=== PATIENT | female | born 1965 | race Two or more races ===

== ENCOUNTER 2021-01-27 04:24 | Day surgery (SDC) | payer OTHER ==
[2021-01-26 10:30] VITALS: BMI 25.8
[2021-01-27] MEDS ORDERED: PHENAZOPYRIDINE HCL 100 MG TABLET (FP) PO ONE (07:00)
[2021-01-27] MEDS ORDERED: CEFAZOLIN 2 GM/D5W 2 GM/50 ML ML IVPB ONE (07:00)
[2021-01-27] MEDS ORDERED: LIDOCAINE HCL/PF 2% SDV 5ML VIAL ONE (07:15)
[2021-01-27] MEDS ORDERED: DEXAMETHASONE SOD PHOSPHATE 4 MG/1 ML VIAL ONE (07:15)
[2021-01-27] MEDS ORDERED: ROCURONIUM BROMIDE 50 MG/5 ML SYRINGE ONE (07:16)
[2021-01-27] MEDS ORDERED: PROPOFOL 20 ML ONE ×2 (07:16→08:42)
[2021-01-27] MEDS ORDERED: fentaNYL CITRATE 250 MCG/5 ML VIAL ONE (07:16)
[2021-01-27] MEDS ORDERED: MIDAZOLAM HCL 2 MG/2 ML SINGLE DOSE VIAL ONE ×2 (07:22)
[2021-01-27] MEDS ORDERED: PHENAZOPYRIDINE HCL 100 MG TABLET (FP) ONE (07:22)
[2021-01-27] MEDS ORDERED: ceFAZolin SODIUM 1 GM VIAL ONE ×2 (07:23→16:29)
[2021-01-27] MEDS ORDERED: BUPIVACAINE HCL 50 ML ONE (07:47)
[2021-01-27] MEDS ORDERED: ceFAZolin SODIUM 1 GM VIAL IVPB ONE (08:45)
[2021-01-27] MEDS ORDERED: TRANEXAMIC ACID 1000 MG/10 ML VIAL ONE (09:09)
[2021-01-27] MEDS ORDERED: NEOSTIGMINE METHYLSULFATE 0.5 MG/ML - 10 ML MDV ONE (10:23)
[2021-01-27] MEDS ORDERED: GLYCOPYRROLATE 0.2 MG/1 ML VIAL ONE (10:23)
[2021-01-27] MEDS ORDERED: KETOROLAC TROMETHAMINE 30 MG/1 ML VIAL ONE (10:23)
[2021-01-27] MEDS ORDERED: oxyCODONE HCL 5 MG TABLET PO PRN ×2 (10:54)
[2021-01-27] MEDS ORDERED: traMADol HCL 50 MG TABLET PO PRN (10:54)
[2021-01-27] MEDS ORDERED: ONDANSETRON 4 MG/2 ML VIAL IVPUSH PRN ×2 (10:54→11:04)
[2021-01-27] MEDS ORDERED: BISACODYL 5 MG TABLET.DR (FP) PO PRN (11:04)
[2021-01-27] MEDS ORDERED: IBUPROFEN 800 MG/8 ML IJ IVPB PRN ×2 (11:04→16:00)
[2021-01-27] MEDS ORDERED: DOCUSATE SODIUM 100 MG CAPSULE (FP) PO PRN (11:04)
[2021-01-27] MEDS ORDERED: SIMETHICONE 80 MG TAB.CHEW (FP) PO PRN (11:04)
[2021-01-27] MEDS ORDERED: LABETALOL HCL 5 MG/1 ML (100MG/20 ML VIAL) IVPUSH ONE (12:13)
[2021-01-27] MEDS: CEFAZOLIN 1 GM in DEXTROSE 5%-WATER - 1 GM/50 ML IVPB IVPB SCH ×2 (17:00→17:40)
[2021-01-27] MEDS: LACTATED RINGERS SOLUTION 1,000 ML IV SCH (17:40)
[2021-01-27 21:57] LABS: HEMATOCRIT 39.5 % (32.4-45.2); HEMOGLOBIN 13.3 GM/dL (10.7-15.3); MCH 30.7 pg (25.7-33.7); MCHC 33.7 g/dl (32.0-36.0); MEAN CELL VOLUME 91.1 fl (80-96); MEAN PLT VOLUME 9.1 fl (7.5-11.1); PLATELET COUNT 257 K/MM3 (134-434); RBC 4.33 M/mm3 (3.60-5.2); RDW 13.7 % (11.6-15.6); WHITE BLOOD COUNT 8.4 K/mm3 (4.0-10.0)
[2021-01-27 22:21] LABS: CALCIUM 9.4 mg/dL (8.5-10.1)
[2021-01-27 22:22] LABS: BLOOD UREA NITROGEN 8.8 mg/dL (7-18)
[2021-01-27 22:25] LABS: CREATININE 0.9 mg/dL (0.55-1.3)
[2021-01-28] MEDS: ACETAMINOPHEN 325 MG TABLET (FP) PO SCH ×2 (00:33→06:38)
[2021-01-28] MEDS ORDERED: ceFAZolin SODIUM 1 GM VIAL ONE (01:03)
[2021-01-28] MEDS ORDERED: DEXTROSE 5%-WATER - 50 ML IVPB ONE (01:04)
[2021-01-28] MEDS: CEFAZOLIN 1 GM in DEXTROSE 5%-WATER - 1 GM/50 ML IVPB IVPB SCH (01:07)
[2021-01-28] MEDS: LACTATED RINGERS SOLUTION 1,000 ML IV SCH (03:21)
[2021-01-28 08:49] LABS: HEMATOCRIT 37.2 % (32.4-45.2); HEMOGLOBIN 12.8 GM/dL (10.7-15.3); MCH 31.4 pg (25.7-33.7); MCHC 34.3 g/dl (32.0-36.0); MEAN CELL VOLUME 91.5 fl (80-96); MEAN PLT VOLUME 9.3 fl (7.5-11.1); PLATELET COUNT 231 K/MM3 (134-434); RBC 4.07 M/mm3 (3.60-5.2); RDW 13.9 % (11.6-15.6); WHITE BLOOD COUNT 7.5 K/mm3 (4.0-10.0)
[2021-01-28 09:19] LABS: BLOOD UREA NITROGEN 8.8 mg/dL (7-18); CALCIUM 9.1 mg/dL (8.5-10.1)
[2021-01-28 09:23] LABS: CREATININE 0.9 mg/dL (0.55-1.3)
[2021-01-28] MEDS ORDERED: PT OWN MED DRAWER 7, Y5N ONE (09:24)
[2021-01-28] MEDS ORDERED: LOSARTAN 50MG/HCTZ 12.5MG 1 TAB PO SCH (10:00)
[2021-01-28] MEDS ORDERED: ENOXAPARIN NA (PORCINE) 40 MG/0.4 ML DISP.SYRIN SQ SCH (10:00)
[2021-01-28 13:58] VITALS: BP 150/95; PULSE 85; TEMP 98.8
== END 2021-01-28 14:57 | disposition home or self-care (01) ==
LOC: JASUSAT 04:24 → J6S 17:49 → JASUSAT 01-28 14:57
PROVIDERS: ATTEND Obstetrics & Gynecology
PROC: 8E0W4CZ Robotic Assisted Procedure of Trunk Region, Percutaneous Endoscopic Approach (ICD-10-PCS; 2021-01-27)
PROC: 0UT9FZZ Resection of Uterus, Via Natural or Artificial Opening With Percutaneous Endoscopic Assistance (ICD-10-PCS; principal; 2021-01-27 07:30)
PROC: 0UT7FZZ Resection of Bilateral Fallopian Tubes, Via Natural or Artificial Opening With Percutaneous Endoscopic Assistance (ICD-10-PCS; 2021-01-27 07:30)
DX: D25.1 Intramural leiomyoma of uterus (principal); N84.0 Polyp of corpus uteri
CPT/HCPCS: 58552; S2900; 36415; 80048; 85027; 86850; 86900; 86901; 88302-TC; 88307-TC; 94760